=== PATIENT | female | born 1990 | race Caucasian/White ===

== ENCOUNTER 2022-03-08 12:30 | Emergency (ER) | payer BC ==
[2022-03-08] MEDS ORDERED: Sodium Chloride 0.9% 10 ML Syringe FLUSH PRN (13:38)
[2022-03-08] MEDS ORDERED: Sodium Chloride 0.9% 1,000 ML IV SCH (13:45)
== END 2022-03-08 13:41 | disposition short-term general hospital (02) ==
LOC: VM.ED 12:30
DX: O47.9 False labor, unspecified (principal); Z3A.28 28 weeks gestation of pregnancy
CPT/HCPCS: 96360; 99283; 99285-25; J7030